=== PATIENT | female | born 1980 | race Caucasian/White ===

== ENCOUNTER 2022-07-03 13:30 | Emergency (ER) | payer MEDICAID, SELFPAY ==
[2022-07-03 13:31] VITALS: BP 121/75; PULSE 71; RESP 16; TEMP 36.6; O2SAT 98; BMI 20.9
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
== END 2022-07-03 15:26 | disposition home or self-care (01) ==
LOC: ED 15:16
PROVIDERS: Emergency Provider Student in an Organized Health Care Education/Training Program; Visit Provider Student in an Organized Health Care Education/Training Program
DX: H60.92 Unspecified otitis externa, left ear (principal); F17.210 Nicotine dependence, cigarettes, uncomplicated
CPT/HCPCS: 99282